=== PATIENT | female | born 1955 | race Caucasian/White ===

== ENCOUNTER → 2021-06-25 14:00 | Outpatient (CLI) | payer SELFPAY ==
--- NOTE | ~2021-06-25 | MM_ITS ---
EXAMINATION: MM screening [facility] BI w [place] HISTORY: Screening mammogram TECHNIQUE: Craniocaudal and mediolateral oblique 3-D tomosynthesis images were obtained and synthetic 2-D images were generated. CAD analysis was submitted and interpreted. COMPARISON: 06/09/2017, 05/30/2017, 11/27/2015 BREAST PARENCHYMAL COMPOSITION: The breasts are heterogeneously dense, which may obscure small masses . FINDINGS: There is no evidence of suspicious mass, calcification, or architectural distortion to sugg est malignancy in either breast. There has been no suspicious interval change. IMPRESSION: 1. No mammographic evidence of malignancy. 2. Recommend routine screening mammography in one year. BI-RADS Category 1: Negative Reviewed, dictated and finalized at location A. FINISHER WOOL
== END ==
PROVIDERS: PCP Family Medicine; Visit Provider Family Medicine
DX: Z12.31 Encounter for screening mammogram for malignant neoplasm of breast (principal)
CPT/HCPCS: 77063; 77067

== ENCOUNTER → 2023-03-22 11:22 | Outpatient (CLI) | payer MEDICARE, OTHER, SELFPAY ==
--- NOTE | ~2023-03-22 | XR_ITS ---
XR sternum min 2V DATE: 03/22/2023 11:49 INDICATION: Chest pain TECHNIQUE: Lateral and oblique views of sternum COMPARISON: None FINDINGS: No sternal fracture or bone destruction is detected. Prominent cervical spondylosis. IMPRESSION: No sternal fracture or bone destruction is detected Reviewed, dictated and finalized at location B.
== END ==
PROVIDERS: PCP Family Medicine; Visit Provider Family Medicine
DX: R07.89 Other chest pain (principal)
CPT/HCPCS: 71120

== ENCOUNTER 2023-07-12 13:58 | Outpatient (CLI) | payer MEDICARE, OTHER, SELFPAY ==
--- NOTE | ~2023-07-12 | US_ITS ---
EXAMINATION: US soft tissue chest DATE: 07/12/2023 14:48 INDICATION: Lump over sternum. TECHNIQUE: Multiple grayscale and Doppler ultrasound images of the chest were obtained. COMPARISON: Sternum radiographs 03/22/2023 FINDINGS: There is no abnormal mass in the patient's area of concern overlying the xiphoid process of the sternum. IMPRESSION: 1. No abnormal mass in the patient's area of concern overlying the xiphoid process of the sternum. Reviewed, dictated and finalized at location E. RING ASSOCIATE IMPRESSION: 1. No abnormal mass in the patient's area of concern overlying the xiphoid proc ess of the sternum.
== END 2023-07-12 13:59 | disposition home or self-care (01) ==
PROVIDERS: PCP Family Medicine; Visit Provider Physician Assistant Medical
DX: R07.89 Other chest pain (principal)
CPT/HCPCS: 76604

== ENCOUNTER 2023-12-25 07:25 | Outpatient (CLI) | payer MEDICARE, OTHER, SELFPAY ==
--- NOTE | ~2023-12-25 | MM_ITS ---
EXAMINATION: MM screening [facility] BI w [place] HISTORY: Screening TECHNIQUE: Craniocaudal and mediolateral oblique 3-D tomosynthesis images were obtained and synthetic 2-D images were generated. CAD analysis was submitted and interpreted. COMPARISON: Comparison to multiple prior studies sequentially, with oldest reviewed study dated 08/13. BREAST PARENCHYMAL COMPOSITION: Dense: The breasts are heterogeneously dense, which may obscure small masses FINDINGS: There is no evidence of suspicious mass, calcification, or architectural distortion to sugg est malignancy in either breast. There has been no suspicious interval change. IMPRESSION: 1. No mammographic evidence of malignancy. 2. Recommend routine screening mammography in one year. BI-RADS Category 1: Negative Reviewed, dictated and finalized at location B.
--- NOTE | ~2023-12-25 | DEXA_ITS ---
Bone Density Report Name: HUGH ELLIOTT Age: 68 Sex: Female Ethnicity: White Date of : 1955 Indication: postmenopausal; screening for osteoporosis; height loss; hysterectomy; Referring Provider: DEBI COLLIER Study: Bone densitometry was performed. Exam Date: December 25, 2023 Accession number: [id number] Bone Density: Region BMD T-score Z-score Classification AP Spine(L1-L4) 0.805 -2.2 -0.3 Osteopenia Femoral Neck (Left) 0.597 -2.3 -0.7 Osteopenia Total Hip (Left) 0.763 -1.5 -0.2 Osteopenia Femoral Neck (Right) 0.565 -2.6 -1.0 Osteoporosis Total Hip (Right) 0.713 -1.9 -0.6 Osteopenia Total Hip Mean 0.738 -1.7 -0.4 Osteopenia World Health Organization criteria for BMD impression classify patients as: Normal (T-score at or above -1.0), Osteopenia (T-score between -1.0 and -2.5), or Osteoporosis (T-score at or below -2.5). 10-year Fracture Risk: FRAX not reported because: Some T-score for Spine Total or Hip Total or Femoral Neck at or below -2.5 Clinical Information Provided by Patient: Has the following medical conditions: Hysterectomy Patient maximum height was 61 Menopause Age: 37 No regular weight bearing exercise Drinks caffeinated beverages Onset of menses at age 15 Number of children 0 Impression: The patient has osteoporosis, based on the Right Femoral Neck T-score. Discussion: INCREASED RISK OF FRACTURE. BONE DENSITY IS UNDESIRABLY LOW AT ONE OR MORE SKELETAL SITES, CONSISTENT WITH POSTMENOPAUSAL OSTEOPOROSIS. This patient's lowest T-score meets the World Health Organization's (WHO) criteria for osteoporosis at one or more sites (T-score -2.5 or below). In untreated patients, the risk of osteoporotic fracture increases approximately two-fold for each 1.0 SD decrease in T-score. Low bone density is not the only risk factor for fracture; also consider factors such as patient's age, frailty or poor health, risk of falling, risk of injury, previous osteoporotic fracture, family history of osteoporosis, cigarette smoking, low body weight, etc. Not everyone with low bone mineral density has osteoporosis; osteomalacia and other metabolic bone disorders should also be considered. Patients who have osteoporosis should be evaluated for specific diseases and conditions (secondary causes) that may cause or contribute to bone loss. The [place] [employer]ocrinologists (AACE) and National Osteoporosis Foundation (NOF) recommend pharmacologic intervention for all postmenopausal women whose T-score is in this range. The patient should follow a healthful lifestyle (good nutrition with adequate calcium and vitamin D, and appropriate weight-bearing exercise). Follow-Up: Consider a repeat BMD and Vertebral Fracture Assessment (VFA) exam in 2 years or sooner if medically necessary,
== END 2023-12-25 07:26 | disposition home or self-care (01) ==
LOC: ANHIMG 07:26
PROVIDERS: PCP Family Medicine; Visit Provider Family Medicine
DX: Z12.31 Encounter for screening mammogram for malignant neoplasm of breast (principal); M81.0 Age-related osteoporosis without current pathological fracture; M85.89 Other specified disorders of bone density and structure, multiple sites; Z78.0 Asymptomatic menopausal state
CPT/HCPCS: 77063; 77067; 77080

== ENCOUNTER 2025-03-16 13:49 | Emergency (ER) | payer MEDICARE, OTHER, SELFPAY ==
[2025-03-16 13:59] VITALS: BP 138/85; PULSE 90; RESP 20; TEMP 36.1; O2SAT 100
--- NOTE | 2025-03-16 14:33 | ED.SKABFB ---
HPI - Skin/Abscess/Foreign Bdy General Chief complaint: Skin/Abscess/Foreign Body Stated complaint: Skin Irritation Time Seen by Provider: 03/16/25 14:26 Source: patient and RN notes reviewed Mode of arrival: ambulatory Limitations: no limitations History of Present Illness HPI narrative: Patient presents today complaining of pruritic, painful insect bite to the right axilla that occurred 2 days ago. States at time of bite, the pain burned intensely. States the area swelled but was soft up until today, now is firm a. She has been trying topical Benadryl without improvement in states the area is very tender. Denies history of abscesses or boils. Related Data Allergies Allergy/AdvReac Type Severity Reaction Status Date / Time No Known Allergies Allergy Verified 03/16/25 14:10 [facility] Past Medical History Medical History Seborrhea capitis in adult Hypertension IBS (irritable bowel syndrome) Generalized anxiety disorder Family History Family History Father Hypertension Family history of elevated blood lipids Mother Hypertension Family history of elevated blood lipids Grandparent Cerebrovascular accident, Onset Age: 70 Social History Social History Smoking status: Never smoker Second hand tobacco smoke exposure: No Alcohol intake: current Drinks per week: 4 Substance use: never Substance use type: does not use Living arrangements: with family Occupation/Education: retired Gender identity (if verbalized by the patient): Female Sexual Orientation (if Verbalized by the Patient): Straight or Heterosexual Comments At time of signature, I have reviewed and agree with nursing past medical, surgical, social and family history unless otherwise noted. Please see nursing chart for further information. There is no relevant family history pertinent to the presenting complaint Exam Narrative: GENERAL: Well-appearing, well-nourished, and in no acute distress. HEAD: Normocephalic, atraumatic. EYES: EOMI. No redness or drainage. Conjunctivae normal. ENT: Mucous membranes pink and moist. NECK: Normal AROM. CHEST: No respiratory distress. EXTREMITIES: Normal range of motion. No edema. SKIN: Warm, dry, no rash. Capillary refill normal. Normal skin turgor. 4 x 2.5 cm area of slight erythema and firmness to the right axilla with scabbed puncture wound in the center. Area is tender to palpation. No fluctuance noted. No increased warmth or obvious induration. No drainage. NEURO: No focal deficits. Alert and oriented x3. Gait steady. PSYCH: Normal affect. No signs of depression or anxiety. Course Course Level of Care: Express Care Visit Vital Signs Vital signs: Vital Signs Temperature 96.9 F L 03/16/25 13:59 Pulse Rate 90 03/16/25 13:59 Respiratory Rate 20 03/16/25 13:59 Blood Pressure 138/85 03/16/25 13:59 Pulse Oximetry 100 03/16/25 13:59 Oxygen Delivery Room Air 03/16/25 13:59 Temperature 96.9 F L 03/16/25 13:59 Pulse Rate 90 03/16/25 13:59 Respiratory Rate 20 03/16/25 13:59 Blood Pressure 138/85 03/16/25 13:59 Pulse Oximetry 100 03/16/25 13:59 Oxygen Delivery Room Air 03/16/25 13:59 Reviewed MDM - Skin/Abscess/Foreign Bdy MDM Narrative Medical decision making narrative: 69-year-old female patient presents today complaining of pruritic, painful insect bite to the right axilla that occurred 2 days ago. Area with soft, but is now firm today. Upon exam, there is a 4 x 2.5 cm area of mild erythema, tenderness, and slight firmness with puncture wound in center. No fluctuance to suggest abscess. It is not obviously indurated to suggest cellulitis, but does seem as if patient is having an allergic reaction to this bite/sting. Patient will be started on some oral prednisone and prescribe some triamcinolone to apply locally to help with the intense itching. Vital signs stable. Patient agrees with plan. Anticipatory guidance given. Differential Diagnosis Differential diagnosis: Likely abscess of skin or subcutaneous tissue, cellulitis and insect bites Critical Care Time Critical Care Time Critical Care Time: No Discharge Plan Discharge Clinical Impression: Allergic reaction to insect bite Patient Disposition: Home Condition: Stable Instructions: Insect Bite or Sting (ED) Additional Instructions: Please take the prednisone as directed. Use the triamcinolone in small localized area to help with the itching. You may taking antihistamine such as Zyrtec, Claritin, or Karyn to help with the itching as well. Follow-up with your PCP in 3 days if symptoms are not improving. Your blood pressure was elevated above 120/80 today at Urgent Care. This puts you above the threshold for follow up. Please schedule a followup visit with your personal physician as soon as possible, for further evaluation and treatment. Even blood pressure exceeding 120/80 may indicate pre-hypertension. Patient Language: Cook Islander Prescriptions: New prednisone 20 mg tablet 40 mg PO DAILY 5 Days Qty: 10 0RF triamcinolone acetonide 0.1 % cream 1 applic topical BID Qty: 30 0RF No Action dicyclomine 20 mg tablet 20 mg PO BID PRN (Reason: irritable bowel) Qty: 60 5RF alendronate 70 mg tablet 70 mg PO WEEKLY 90 Days Qty: 13 2RF hydrochlorothiazide 12.5 mg tablet See Rx Instructions .ROUTE .COMPLEX Qty: 90 1RF Dose Instruction: Take 1 tablet by mouth once daily Rx Instructions: Take 1 tablet by mouth once daily lisinopril 40 mg tablet 40 mg PO DAILY Qty: 90 1RF duloxetine 60 mg capsule,delayed release(DR/EC) 60 mg PO DAILY Qty: 90 1RF Follow-up/Referrals: PHYSICIAN,PICKER BOX OPERATOR [Primary Care Provider, Internal Medicine] Time of Disposition: 14:38
== END 2025-03-16 14:41 | disposition home or self-care (01) ==
PROVIDERS: Emergency Provider Nurse Practitioner
DX: S40.861A Insect bite (nonvenomous) of right upper arm, initial encounter (principal); W57.XXXA Bitten or stung by nonvenomous insect and other nonvenomous arthropods, initial encounter; I10 Essential (primary) hypertension
CPT/HCPCS: 99213; G0463